=== PATIENT | male | born 1965 | race Caucasian/White ===

== ENCOUNTER → 2021-09-08 | Outpatient (RCR) | payer BC | LOC: PT 08-20 16:24 | PROVIDERS: ATTEND Physical Medicine & Rehabilitation | DX: M54.16 Radiculopathy, lumbar region (principal); Z98.1 Arthrodesis status; M96.1 Postlaminectomy syndrome, not elsewhere classified; G95.9 Disease of spinal cord, unspecified ==

== ENCOUNTER → 2021-10-09 | Outpatient (RCR) | payer BC, OTHER | LOC: PT 09-09 08:00 | PROVIDERS: ATTEND Physical Medicine & Rehabilitation | DX: M54.16 Radiculopathy, lumbar region (principal); M96.1 Postlaminectomy syndrome, not elsewhere classified; G95.9 Disease of spinal cord, unspecified; Z98.1 Arthrodesis status | CPT/HCPCS: 97139 ==

== ENCOUNTER 2021-10-17 08:00 | Outpatient (RCR) | payer OTHER | END 2021-11-08 | LOC: PT 08:00 | PROVIDERS: ATTEND Physical Medicine & Rehabilitation | DX: M54.16 Radiculopathy, lumbar region (principal); M96.1 Postlaminectomy syndrome, not elsewhere classified; G95.9 Disease of spinal cord, unspecified; Z98.1 Arthrodesis status | CPT/HCPCS: 97139 ==

== ENCOUNTER 2022-02-06 07:00 | Outpatient (RCR) | payer OTHER | END 2022-02-08 | LOC: PT 07:00 | PROVIDERS: ATTEND Physical Medicine & Rehabilitation | DX: M96.1 Postlaminectomy syndrome, not elsewhere classified (principal) ==

== ENCOUNTER 2022-03-10 07:00 | Outpatient (RCR) | payer OTHER | END 2022-03-11 | LOC: PT 07:00 | PROVIDERS: ATTEND Physical Medicine & Rehabilitation | DX: M96.1 Postlaminectomy syndrome, not elsewhere classified (principal) ==

== ENCOUNTER 2022-04-09 07:00 | Outpatient (RCR) | payer OTHER | END 2022-04-10 | LOC: PT 07:00 | PROVIDERS: ATTEND Physical Medicine & Rehabilitation | DX: M96.1 Postlaminectomy syndrome, not elsewhere classified (principal) ==

== ENCOUNTER 2022-04-28 07:00 | Outpatient (RCR) | payer OTHER | END 2022-05-11 | LOC: PT 07:00 | PROVIDERS: ATTEND Physical Medicine & Rehabilitation | DX: M96.1 Postlaminectomy syndrome, not elsewhere classified (principal); M79.18 Myalgia, other site; M54.50 Low back pain, unspecified; R26.9 Unspecified abnormalities of gait and mobility; M53.87 Other specified dorsopathies, lumbosacral region ==

== ENCOUNTER 2022-12-08 07:59 | Outpatient (RCR) | payer OTHER | END 2022-12-09 | LOC: PT 07:59 | PROVIDERS: ATTEND Physical Medicine & Rehabilitation | DX: M50.020 Cervical disc disorder with myelopathy, mid-cervical region, unspecified level (principal); M96.1 Postlaminectomy syndrome, not elsewhere classified ==

== ENCOUNTER 2023-01-01 08:00 | Outpatient (RCR) | payer OTHER | END 2023-01-08 | LOC: PT 08:00 | PROVIDERS: ATTEND Physical Medicine & Rehabilitation | DX: G95.89 Other specified diseases of spinal cord (principal); M96.1 Postlaminectomy syndrome, not elsewhere classified ==

== ENCOUNTER 2023-05-03 08:06 | Outpatient (RCR) | payer OTHER | END 2023-05-11 | LOC: PT 08:06 | PROVIDERS: ATTEND Physical Medicine & Rehabilitation | DX: M96.1 Postlaminectomy syndrome, not elsewhere classified (principal); M54.50 Low back pain, unspecified; M62.89 Other specified disorders of muscle; R26.9 Unspecified abnormalities of gait and mobility; M53.86 Other specified dorsopathies, lumbar region ==

== ENCOUNTER 2023-06-08 07:00 | Outpatient (RCR) | payer OTHER | END 2023-06-10 | LOC: PT 07:00 | PROVIDERS: ATTEND Physical Medicine & Rehabilitation | DX: M54.2 Cervicalgia (principal); M54.50 Low back pain, unspecified; M21.371 Foot drop, right foot ==